=== PATIENT | female | born 1985 | race Caucasian/White ===

== ENCOUNTER 2018-04-04 17:23 | Emergency (ER) | payer BC ==
[~2018-04-04] VITALS: Ht 165.1 cm; Wt 97.1 kg
[2018-04-04 17:34] VITALS: Ht 165.1 cm; Wt 97.1 kg
[2018-04-04 18:14] LABS: BASOPHIL % 0.4 % (0-2); PLATELET COUNT 282 x10^3mcL (130-400); RED CELL DISTRIBUTION WIDTH 13.2 % (11.5-14.5)
[2018-04-04 18:15] LABS: CALCIUM 8.6 mg/dL (8.5-10.1); CARBON DIOXIDE 26.8 mmol/L (21-32); CHLORIDE SERUM 103 mmol/L (98-107); CREATININE SERUM 0.8 mg/dL (0.6-1.0); GFR1 > 60 mL/min; GLUCOSE SERUM 153 mg/dL (74-106); POTASSIUM SERUM 3.3 mmol/L (3.5-5.1); SODIUM SERUM 136 mmol/L (136-145)
[2018-04-04 18:20] LABS: ALBUMIN 3.4 g/dL (3.4-5.0); ALKALINE PHOSPHATASE 106 U/L (46-116); ALT/SGPT 54 U/L (14-59); AST/SGOT 106 U/L (15-37); BILIRUBIN TOTAL 0.41 mg/dL (0.20-1.00); LIPASE 252 IU/L (73-393); TOTAL PROTEIN, SERUM 7.4 g/dL (6.4-8.2)
[2018-04-04 19:31] VITALS: BP 119/77
== END 2018-04-04 19:31 | disposition home or self-care (01) ==
LOC: ED 17:23
PROVIDERS: Emergency Medicine
PROC: BF42ZZZ Ultrasonography of Gallbladder (ICD-10-PCS; principal; 2018-04-04)
PROC: 3E033GC Introduction of Other Therapeutic Substance into Peripheral Vein, Percutaneous Approach (ICD-10-PCS; 2018-04-04)
DX: K21.9 Gastro-esophageal reflux disease without esophagitis (principal); R42 Dizziness and giddiness; K80.80 Other cholelithiasis without obstruction
CPT/HCPCS: J3490; J7030; Q0092